=== PATIENT | female | born 1965 | race Caucasian/White ===

== ENCOUNTER → 2016-12-02 | Outpatient (CLI) | payer BC ==
[2016-12-02 10:01] LABS: EKG EKG PERFORMED
[2016-12-02 10:52] LABS: Anion Gap 8 mmol/L; Blood Urea Nitrogen 11 mg/dL (7-17); Calcium 9.3 mg/dL (8.4-10.2); Carbon Dioxide 28 mmol/L (22-30); Chloride 105 mmol/L (98-107); Glucose 101 mg/dL (74-99); Non-African American GFR(MDRD) 58 (>60 ml/min/1.73 sqM); Potassium 4.5 mmol/L (3.5-5.1); Sodium 141 mmol/L (137-145)
[2016-12-02 11:25] LABS: Basophils # (A) 0.1 k/uL (0-0.2); Basophils % (A) 1 %; CH 28.9; CHCM 32.7; Eosinophils # (A) 0.1 k/uL (0-0.7); Eosinophils % (A) 1 %; HDW 2.33; Luc # (Auto) 0.21; Luc % (Auto) 2; Lymphocytes # (A) 2.6 k/uL (1.0-4.8); Lymphocytes % (A) 27 %; MCH 28.9 pg (25.0-35.0); MCHC 32.6 g/dL (31.0-37.0); MCV 88.8 fL (80.0-100.0); Mean Platelet Volume 7.6; Monocytes # (A) 0.5 k/uL (0-1.0); Monocytes % (A) 5 %; Neutrophils # (A) 6.2 k/uL (1.3-7.7); Neutrophils % (A) 64 %; RBC 4.84 m/uL (3.80-5.40); RDW 13.6 % (11.5-15.5); WBC 9.7 k/uL (3.8-10.6)
--- NOTE | 2016-12-02 11:49 | XR ---
Abdomen HISTORY: Left ureteral calculus No comparisons Single frontal view of the abdomen The lung bases are not included on the exam. Overlying bowel gas may obscure detail. There is no evid ent bowel obstruction or pneumoperitoneum. Calcifications are present within the pelvis which are ind eterminate and could represent phleboliths. There is a calcification suspected superimposed over the left sacrum measuring approximately 4 to 5 mm. IMPRESSION: Findings may represent the left ureteral calculus.
== END | disposition home or self-care (01) ==
LOC: LABWHC1 09:49
PROVIDERS: ATTEND Physician Assistant
DX: N20.1 Calculus of ureter (principal)
CPT/HCPCS: 36415; 74000; 80048; 85025; 93005

== ENCOUNTER 2016-12-09 10:01 | Day surgery (SDC) | payer BC ==
[2016-12-06 11:23] VITALS: BMI 37.2
[~2016-12-09 10:01] MED LIST: DEXAMETHASONE SOD PHOSPHATE 10 MG/ML 1 ML VIAL IV ONE; HYDROmorphone 1 MG/ML 1 ML SYRINGE IVP PRN; LACTATED RINGERS 1,000 ML IV SCH; ONDANSETRON 4 MG/2 ML VIAL IVP ONE; Pre Op ABX Message 1 EACH MISC MISCELLANE ONE; SCOPOLAMINE 1.5MG/72HR PATCH TRANSDERM ONE
--- NOTE | 2016-12-09 10:10 | XR ---
EXAMINATION TYPE: XR KUB DATE OF EXAM: 12/09/2016 9:48 AM CLINICAL HISTORY: Left-sided kidney stone TECHNIQUE: Single supine KUB image of the abdomen is obtained. COMPARISON: Abdominal x-ray November 2016 FINDINGS: There is redemonstration 4 mm density in the left pelvis felt to reflect progression of dis clyde ureter calculus closer to UVJ. Scattered pelvic phleboliths are again seen. Overall nonobstructive bowel gas pattern is present. Visualized osseous structures are intact. IMPRESSION: Some progression in distal 4 mm left ureter calculus likely approaching UVJ.
[2016-12-09 11:10] VITALS: TEMP 97.2
[2016-12-09] MEDS ORDERED: PROPOFOL 10 MG/ML 20 ML VIAL IV ONE (13:40)
[2016-12-09] MEDS ORDERED: KETAMINE 10 MG/ML 20 ML VIAL ONE (13:40)
[2016-12-09] MEDS ORDERED: fentaNYL (PF) 50 MCG/ML 2 ML AMP ONE (13:40)
[2016-12-09] MEDS ORDERED: MIDAZOLAM 2 MG/2 ML VIAL ONE (13:40)
[2016-12-09] MEDS ORDERED: LACTATED RINGERS 1,000 ML IV ONE (13:57)
[2016-12-09 14:48] VITALS: PULSE 86
[2016-12-09 15:15] VITALS: BP 154/90; RESP 18
--- NOTE | 2016-12-10 11:00 | OP ---
DATE OF SERVICE: 12/09/2016 SURGEON: MINA LAND MD PREOPERATIVE DIAGNOSIS: Distal left ureteral calculus. POSTOPERATIVE DIAGNOSIS: Distal left ureteral calculus. OPERATION: Extracorporal shock-wave lithotripsy of distal left ureteral calculus. ANESTHESIA: Intravenous sedation. DESCRIPTION OF PROCEDURE: Patient is a 51-year-old female with history of urolithiasis who recently developed left flank pain. Patient currently has a 3 to 4 mm calculus in the distal left ureter which is located approximately 4 cm proximal to the ureterovesical junction. Treatment options were reviewed with Dr. Vasquez and the patient has elected to proceed with ESWL procedure. Patient is taken to the operating suite where adequate intravenous sedation was given. Patient was placed in the supine position on the fluoroscopy table. The distal left ureteral calculus was localized using biplanar fluoroscopy. Lithotripsy was performed using the Dornier compact Delta unit. Patient received 3000 shocks at level 6 at a rate of 60 shocks per minute. It is unclear whether the calculus fragmented. Anesthesia was reversed and the patient was returned to the recovery room, awake and in satisfactory condition. She will see back by Dr. Vasquez in approximately 1 week. [facility]
== END 2016-12-09 15:29 | disposition home or self-care (01) ==
LOC: ORWHC2ENDO 10:01
PROVIDERS: ATTEND Urology
DX: N20.1 Calculus of ureter (principal); Z87.891 Personal history of nicotine dependence; Z79.899 Other long term (current) drug therapy
CPT/HCPCS: 74000; 50590; J2250; J3010; J2704

== ENCOUNTER → 2016-12-16 | Outpatient (CLI) | payer BC ==
--- NOTE | 2016-12-16 13:44 | XR ---
EXAMINATION TYPE: XR KUB DATE OF EXAM: 12/16/2016 1:36 PM COMPARISON: NONE INDICATION: Left-sided stone TECHNIQUE: Single view abdomen supine FINDINGS: There is a normal bowel gas pattern. Psoas margins are normal. No organomegaly is present. Moderate fecal debris is within the colon. Previous calcification in left hemipelvis not visualized on the current examination. The adjacent phl ebolith is stable. IMPRESSION: 1. Nonvisualization of previous distal left ureteral stone
== END | disposition home or self-care (01) ==
LOC: RADXRMAIN 13:24
PROVIDERS: ATTEND Urology
DX: N20.1 Calculus of ureter (principal)
CPT/HCPCS: 74000